=== PATIENT | male | born 1990 | race Two or more races ===

== ENCOUNTER 2017-09-18 16:57 | Emergency (ER) | payer OTHER ==
[2017-09-18] MEDS ORDERED: HYDROCODONE/APAP 5/325MG 1 EACH TABLET PO ONE (17:30)
[2017-09-18] MEDS ORDERED: HYDROCODONE/APAP 5/325MG 1 EACH TABLET ONE (17:59)
== END 2017-09-18 18:51 | disposition home or self-care (01) ==
DX: S62.336A Displaced fracture of neck of fifth metacarpal bone, right hand, initial encounter for closed fracture (principal); J45.909 Unspecified asthma, uncomplicated; I10 Essential (primary) hypertension; W22.8XXA Striking against or struck by other objects, initial encounter; Y93.89 Activity, other specified; Y92.89 Other specified places as the place of occurrence of the external cause; Y99.8 Other external cause status

== ENCOUNTER 2019-11-22 01:52 | Emergency (ER) | payer OTHER ==
[~2019-11-22] VITALS: Ht 185.4 cm; Wt 105.2 kg
[2019-11-22] MEDS ORDERED: KETOROLAC TROMETHAMINE INJ 60 MG/2 ML VIAL IM ONE ×2 (02:02→02:30)
--- NOTE | 2019-11-22 02:05 | NUR ---
PT CAME INTO THE ED C/O HAND AND WRIST PAIN AFTER PUNCHING A WALL. PT AAOX4, VSS, RR EVEN AND UNLABORED ON RA W NAD NOTED. AWAITING FOR MD MON
[2019-11-22 02:07] VITALS: BP 117/76
--- NOTE | 2019-11-22 02:24 | NUR ---
XRAY AT BEDSIDE
--- NOTE | 2019-11-22 03:21 | NUR ---
Patient discharged to home in stable condition. Written and verbal after care instructions given. Patient verbalizes understanding of instruction.
== END 2019-11-22 03:21 | disposition home or self-care (01) ==
LOC: ER 01:55
DX: S62.356A Nondisplaced fracture of shaft of fifth metacarpal bone, right hand, initial encounter for closed fracture (principal); I10 Essential (primary) hypertension; J45.909 Unspecified asthma, uncomplicated; W22.01XA Walked into wall, initial encounter; Y93.89 Activity, other specified; Y92.89 Other specified places as the place of occurrence of the external cause; Y99.8 Other external cause status
CPT/HCPCS: 29125; 73110; 73130; 96372; 99284; J1885